=== PATIENT | female | born 1995 | race American Indian/Alaskan Native ===

== ENCOUNTER 2018-12-13 11:37 | Emergency (ER) | payer SELFPAY ==
--- NOTE | 2018-12-13 12:15 | Emergency Department Report ---
Blank Doc - Documentation Documentation: This is a 23-year-old female that presents with pelvic cramping and vaginal di scharge. Denies any other symptoms. Denies vaginal bleeding. Stated had a positive test 11/02/2018. LMP 10/27/2018. This initial assessment diagnostic orders/clinical plan/treatment(s) is/are subject to change based on patient's health status, clinical progression and re- assessment by fellow clinical providers in the ED. Further treatment and workup at subsequent clinical providers discretion. Patient/guardians urged not to elope from ED s their condition may be serious if not clinically assessed and managed. Initial orders include: 1-Patient sent to [facility] for further evaluation and treatment 2- UA 3- Labs
[2018-12-13 12:45] LABS: Basophils % (Auto) 0.5 % (0.0-1.8); Eosinophils # (Auto) 0.1 K/mm3 (0.0-0.4); Eosinophils % (Auto) 0.9 % (0.0-4.3); Hematocrit 34.1 % (30.3-42.9); Hemoglobin 10.5 gm/dl (10.1-14.3); Lymphocytes # (Auto) 2.6 K/mm3 (1.2-5.4); Lymphocytes % (Auto) 41.1 % (13.4-35.0); Mean Corpuscular HGB Conc 31 % (30-34); Mean Corpuscular Volume 71 fl (79-97); Monocytes # (Auto) 0.7 K/mm3 (0.0-0.8); Monocytes % (Auto) 11.8 % (0.0-7.3); Platelet Count 379 K/mm3 (140-440); Red Cell Distribution Width 18.6 % (13.2-15.2)
--- NOTE | 2018-12-13 12:45 | Emergency Department Report ---
ED Female HPI - General Chief complaint: Abdominal Pain Stated complaint: VAGINAL CRAMPING Time Seen by Provider: 12/13/18 12:13 Source: patient Mode of arrival: Ambulatory Limitations: No Limitations - History of Present Illness Initial comments: Patient is a 23-year-old female presents to the ED complaining of lower pelvic pain and placed. Patient states her last cycle was the beginning of October. Patient states she is unable to recall exactly. She denies vaginal bleeding. Patient has mild pelvic cramping. - Related Data Previous Rx's Medication Instructions Recorded Last Taken Type Acetaminophen [Tylenol 8 Hour] 650 mg PO TID #30 tablet.er 12/13/18 Unknown Rx Ondansetron [Zofran ODT TAB] 8 mg PO Q12HR #30 tab.rapdis 12/13/18 Unknown Rx Pnv No.95/Ferrous Fum/Folic AC 1 each PO DAILY #40 tablet 12/13/18 Unknown Rx [ Vitamin Tablet] Allergies Allergy/AdvReac Type Severity Reaction Status Date / Time Penicillins Allergy Hives Verified 12/13/18 11:41 ED Review of Systems ROS: Stated complaint: VAGINAL CRAMPING Other details as noted in HPI Comment: All other systems reviewed and negative ED Past Medical Hx - Past Medical History Previous Medical History?: No - Surgical History Past Surgical History?: No - Social History Smoking Status: Former Smoker Substance Use Type: None - Medications Home Medications: Home Medications Medication Instructions Recorded Confirmed Last Taken Type Acetaminophen [Tylenol 8 Hour] 650 mg PO TID #30 tablet.er 12/13/18 Unknown Rx Ondansetron [Zofran ODT TAB] 8 mg PO Q12HR #30 tab.rapdis 12/13/18 Unknown Rx Pnv No.95/Ferrous Fum/Folic AC 1 each PO DAILY #40 tablet 12/13/18 Unknown Rx [ Vitamin Tablet] ED Physical Exam - General Limitations: No Limitations General appearance: alert, in no apparent distress - Head Head exam: Present: atraumatic, normocephalic - Eye Eye exam: Present: normal appearance - ENT ENT exam: Present: mucous membranes moist - Neck Neck exam: Present: normal inspection - Respiratory Respiratory exam: Present: normal lung sounds bilaterally. Absent: respiratory distress, wheezes, rales - Cardiovascular Cardiovascular Exam: Present: regular rate, normal rhythm. Absent: systolic murmur, diastolic murmur, rubs, gallop - GI/Abdominal GI/Abdominal exam: Present: soft, normal bowel sounds. Absent: distended, tenderness, guarding, rebound, rigid - Extremities Exam Extremities exam: Present: normal inspection - Back Exam Back exam: Present: normal inspection - Neurological Exam Neurological exam: Present: alert, oriented X3 - Psychiatric Psychiatric exam: Present: normal affect, normal mood - Skin Skin exam: Present: warm, dry, intact, normal color. Absent: rash ED Course Vital Signs 12/13/18 12/13/18 12/13/18 12:14 15:48 17:40 Temperature 99.4 F 98.9 F Pulse Rate 74 72 Respiratory 18 18 20 Rate Blood Pressure 129/66 Blood Pressure 129/66 129/71 [Right] O2 Sat by Pulse 100 98 Oximetry 12/13/18 17:41 Temperature Pulse Rate Respiratory 20 Rate Blood Pressure Blood Pressure [Right] O2 Sat by Pulse 98 Oximetry ED Medical Decision Making - Lab Data Result diagrams: 12/13/18 12:23 Laboratory Last Values WBC 6.3 K/mm3 (4.5-11.0) 12/13/18 12:23 RBC 4.80 M/mm3 (3.65-5.03) 12/13/18 12:23 Hgb 10.5 gm/dl (10.1-14.3) 12/13/18 12:23 Hct 34.1 % (30.3-42.9) 12/13/18 12:23 MCV 71 fl (79-97) L 12/13/18 12:23 MCH 22 pg (28-32) L 12/13/18 12:23 MCHC 31 % (30-34) 12/13/18 12:23 RDW 18.6 % (13.2-15.2) H 12/13/18 12:23 Plt Count 379 K/mm3 (140-440) 12/13/18 12:23 Lymph % (Auto) 41.1 % (13.4-35.0) H 12/13/18 12:23 [place] % (Auto) 11.8 % (0.0-7.3) H 12/13/18 12:23 Eos % (Auto) 0.9 % (0.0-4.3) 12/13/18 12:23 Baso % (Auto) 0.5 % (0.0-1.8) 12/13/18 12:23 Lymph # 2.6 K/mm3 (1.2-5.4) 12/13/18 12:23 [place] # 0.7 K/mm3 (0.0-0.8) 12/13/18 12:23 Eos # 0.1 K/mm3 (0.0-0.4) 12/13/18 12:23 Baso # 0.0 K/mm3 (0.0-0.1) 12/13/18 12:23 Seg Neutrophils % 45.7 % (40.0-70.0) 12/13/18 12:23 Seg Neutrophils # 2.9 K/mm3 (1.8-7.7) 12/13/18 12:23 HCG, Quant 5641 mIU/mL (0-4) H 12/13/18 12:23 Urine Color Yellow (Yellow) 12/13/18 13:12 Urine Turbidity Slightly-cloudy (Clear) 12/13/18 13:12 Urine pH 6.0 (5.0-7.0) 12/13/18 13:12 Ur Specific [place] 1.025 (1.003-1.030) 12/13/18 13:12 Urine Protein <15 mg/dl mg/dL (Negative) 12/13/18 13:12 Urine Glucose (UA) Neg mg/dL (Negative) 12/13/18 13:12 Urine Ketones Neg mg/dL (Negative) 12/13/18 13:12 Urine Blood Neg (Negative) 12/13/18 13:12 Urine Nitrite Neg (Negative) 12/13/18 13:12 Urine Bilirubin Neg (Negative) 12/13/18 13:12 Urine Urobilinogen < 2.0 mg/dL (<2.0) 12/13/18 13:12 Ur Leukocyte Esterase Lg (Negative) 12/13/18 13:12 Urine WBC (Auto) 13.0 /HPF (0.0-6.0) H 12/13/18 13:12 Urine RBC (Auto) 4.0 /HPF (0.0-6.0) 12/13/18 13:12 U Epithel Cells (Auto) 15.0 /HPF (0-13.0) H 12/13/18 13:12 Urine Bacteria (Auto) 1+ /HPF (Negative) 12/13/18 13:12 Urine Mucus Few /HPF 12/13/18 13:12 - Radiology Data Radiology results: report reviewed, image reviewed FINAL REPORT EXAM: US OB lt; = 14 WEEKS FETUS HISTORY: pelvic pain . LMP 10/27/2018 with estimated age 6 weeks 5 days and EDC 08/03/2019 TECHNIQUE: Ultrasound of the pelvis using transabdominal and transvaginal imaging PRIORS: None. FINDINGS: Uterus: Uterus is enlarged in size and normal and homogeneous in echogenicity without focal fibroid formation. The uterus measures 8.8 x 5.3 x 4.9 cm in size. There is a single early intrauterine gestation noted. Intrauterine gestation: There is a single intrauterine gestation identified. A possible yolk sac is visualized but a pole is not yet seen. Average gestational sac diameter measurement of 9 mm corresponds to estimated age 5 weeks 5 days with EDC 08/10/2019. Ovaries: Both ovaries appear normal in size and echogenicity with normal blood flow bilaterally. The right ovary measures 2.3 x 0.7 x 2.2 cm and the left ovary measures 3.8 x 2.1 x 2.4 cm in size. There is a 2.7 cm homogeneous isoechoic focus in the left ovary with internal blood flow. This measures 2.7 x 1.9 x 1.9 cm. I cannot exclude a solid focus in the left ovary. Short-term follow-up ultrasound is recommended 1-2 weeks. Other: There is no evidence for solid adnexal mass is seen. There is minimal free fluid in the cul-de-sac. IMPRESSION: 1. single intrauterine with an approximate age of 5 weeks 5 days. A possible yolk sac is seen but a pole is not yet confirmed. pole can be confirmed with follow-up ultrasound 1- 2 weeks. 2 possible isoechoic solid focus in the left ovary. Short-term follow-up ultrasound 1-2 weeks is recommended. Transcribed By: [facility] Dictated By: BLANQUITA COWART MD Electronically Authenticated By: BLANQUITA COWART MD Signed Date/Time: 12/23/18 1014 - Medical Decision Making 21-year-old female presents with early . Ultrasound shows findings C reported above Discussed findings with the patient. Discussed the patient will follow-up with [facility]. Patient is in no acute distress Critical care attestation.: If time is entered above; I have spent that time in minutes in the direct care of this critically ill patient, excluding procedure time. ED Disposition Clinical Impression: , Early stage of Disposition: - TO HOME OR SELFCARE Is pt being admited?: No Does the pt Need Aspirin: No Condition: Stable Instructions: (ED), Abdominal Pain (ED) Additional Instructions: Make sure to follow up with the [facility] as discussed. Take all your medications as you've been prescribed. You need to repeat ultrasound within 1-2 weeks as this ultrasound suggests early . Return to the ED if worsening pain, vaginal bleed, and he wants the symptoms If you have any worsening symptoms or develop new symptoms please return to ED immediately. Prescriptions: Acetaminophen [Tylenol 8 Hour] 650 mg PO TID #30 tablet.er Ondansetron [Zofran ODT TAB] 8 mg PO Q12HR #30 tab.rapdis Pnv No.95/Ferrous Fum/Folic AC [ Vitamin Tablet] 1 each PO DAILY #40 tablet Referrals: [facility]EM[facility] [Primary Care Provider] - 3-5 Days [facility] [Provider Group] - 3-5 Days [facility] [Provider Group] - 3-5 Days Forms: Work/School Release Form(ED) Time of Disposition: 17:05
[2018-12-13 14:14] LABS: Bacteria,Urine 1+ /HPF (Negative); Bilirubin,Urine NEG (Negative); Blood,Urine NEG (Negative); Color,Urine Yellow (Yellow); Mucus,Urine FEW /HPF; Protein,Urine <15 mg/dL mg/dL (Negative); Urobilinogen,Urine < 2.0 mg/dL (<2.0)
[2018-12-13] MEDS ORDERED: TYLENOL PO ONE (15:41)
[2018-12-13] MEDS ORDERED: ZOFRAN ODT PO ONE (15:43)
[2018-12-13 17:41] VITALS: BP 129/71
--- NOTE | 2018-12-23 10:14 | Ultrasound Report ---
FINAL REPORT EXAM: US OB < = 14 WEEKS FETUS HISTORY: pelvic pain . LMP 10/27/2018 with estimated age 6 weeks 5 days and EDC 08/03/2019 TECHNIQUE: Ultrasound of the pelvis using transabdominal and transvaginal imaging PRIORS: None. FINDINGS: Uterus: Uterus is enlarged in size and normal and homogeneous in echogenicity without focal fibroid f ormation. The uterus measures 8.8 x 5.3 x 4.9 cm in size. There is a single early intrauterine gestat ion noted. Intrauterine gestation: There is a single intrauterine gestation identified. A possible yolk sac is v isualized but a pole is not yet seen. Average gestational sac diameter measurement of 9 mm ronnie esponds to estimated age 5 weeks 5 days with EDC 08/10/2019. Ovaries: Both ovaries appear normal in size and echogenicity with normal blood flow bilaterally. The right ovary measures 2.3 x 0.7 x 2.2 cm and the left ovary measures 3.8 x 2.1 x 2.4 cm in size. There is a 2.7 cm homogeneous isoechoic focus in the left ovary with internal blood flow. This measures 2. 7 x 1.9 x 1.9 cm. I cannot exclude a solid focus in the left ovary. Short-term follow-up ultrasound i s recommended 1-2 weeks. Other: There is no evidence for solid adnexal mass is seen. There is minimal free fluid in the cul-de -sac. IMPRESSION: 1. single intrauterine with an approximate age of 5 weeks 5 days. A possible yolk sac is se en but a pole is not yet confirmed. pole can be confirmed with follow-up ultrasound 1-2 w eeks. 2 possible isoechoic solid focus in the left ovary. Short-term follow-up ultrasound 1-2 weeks is risa mmended.
== END 2018-12-13 17:43 | disposition home or self-care (01) ==
LOC: ED 11:37
DX: O26.891 Other specified pregnancy related conditions, first trimester (principal); Z87.891 Personal history of nicotine dependence; Z3A.01 Less than 8 weeks gestation of pregnancy; Z88.0 Allergy status to penicillin
CPT/HCPCS: 36415; 76801; 76817; 81001; 84702; 85025; Q0162